=== PATIENT | male | born 1960 | race Caucasian/White ===

== ENCOUNTER 2020-02-27 08:49 | Observation (INO) ==
--- NOTE | 2020-02-06 17:07 | PAT Medication Instructions ---
Medication Instructions Date of Service February 06, 2020 Home Medications C,E,zinc,copper [id number] [Ocuvite Adult 50 Plus] 1 cap PO QAM acetaminophen [Tylenol Extra Strength] 1,000 mg PO Q6H PRN aspirin [Aspir-81] 81 mg PO QAM atorvastatin 20 mg PO QAM cholecalciferol (vitamin D3) [Vitamin D3] 25 mcg PO QAM losartan 50 mg PO QAM metformin 1,000 mg PO BID multivitamin 1 tab PO QAM omega 2-nni-hld-fish oil [Fish Oil] 1 cap PO QAM omeprazole 20 mg PO QAM semaglutide [Ozempic] 0.5 mg SUBCUT WK sildenafil [Viagra] 50 mg PO DAILY PRN sulindac 150 mg PO BID Continue as directed semaglutide [Ozempic] 0.5 mg SUBCUT WK (just do not take AM of surgery) ASK your surgeon for instructions sulindac 150 mg PO BID STOP taking 2 weeks before surgery omega 6-jhx-ajf-fish oil [Fish Oil] 1 cap PO QAM C,E,zinc,copper [id number] [Ocuvite Adult 50 Plus] 1 cap PO QAM DO NOT take the morning of surgery sildenafil [Viagra] 50 mg PO DAILY PRN multivitamin 1 tab PO QAM metformin 1,000 mg PO BID cholecalciferol (vitamin D3) [Vitamin D3] 25 mcg PO QAM losartan 50 mg PO QAM Take morning of surgery With a small sip of water, OTHERWISE NOTHING TO EAT OR DRINK AFTER MIDNIGHT: omeprazole 20 mg PO QAM aspirin [Aspir-81] 81 mg PO QAM atorvastatin 20 mg PO QAM acetaminophen [Tylenol Extra Strength] 1,000 mg PO Q6H PRN (okay to take up to 4 hours prior to surgery if needed) Take evening before surgery metformin 1,000 mg PO BID acetaminophen [Tylenol Extra Strength] 1,000 mg PO Q6H PRN (if needed) Other Notes If you have any questions please call us at [phone] or [phone] or [phone] or [phone]
--- NOTE | 2020-02-07 11:50 | Anesthesiology Consultation ---
Date of Service February 07, 2020 Assessment & Plan (1) Encounter for pre-operative examination: Chart Review Chart Review: Acceptable Risk for Surgery (pending Covid testing ) and Patient seen in Pre Admission Testing - Check BSG AM DOS Per PAT apt 02/07/20, pt resides in [facility]. Traveled to [facility] x 1. Denies any known Covid positive contacts. Denies any current Covid related symptoms. Has preop Covid testing scheduled three days prior to procedure. Was educated that he should social distance and strict quarantine after Covid test done. History Surgery Operation Date: 02/27/20 08:35 Proposed Procedures p Right Total Knee Arthroplasty - Marc Barton MD Height/Weight Height: 5 ft 6 in Weight: 106.4 kg Allergies Allergy/AdvReac Type Severity Reaction Status Date / Time latex Allergy Mild RASH Verified 02/05/20 14:22 Medications Home Medications Medication Instructions Recorded Confirmed Last Taken C,E,zinc,copper [id number] 1 cap PO QAM 02/05/20 02/05/20 Unknown [Ocuvite Adult 50 Plus] acetaminophen [Tylenol Extra 1,000 mg PO Q6H PRN 02/05/20 02/05/20 Unknown Strength] aspirin [Aspir-81] 81 mg PO QAM 02/05/20 02/05/20 Unknown atorvastatin 20 mg PO QAM 02/05/20 02/05/20 Unknown cholecalciferol (vitamin D3) 25 mcg PO QAM 02/05/20 02/05/20 Unknown [Vitamin D3] losartan 50 mg PO QAM 02/05/20 02/05/20 Unknown metformin 1,000 mg PO BID 02/05/20 02/05/20 Unknown multivitamin 1 tab PO QAM 02/05/20 02/05/20 Unknown omega 9-lqq-gwl-fish oil [Fish Oil] 1 cap PO QAM 02/05/20 02/05/20 Unknown omeprazole 20 mg PO QAM 02/05/20 02/05/20 Unknown semaglutide [Ozempic] 0.5 mg SUBCUT WK 02/05/20 02/05/20 Unknown sildenafil [Viagra] 50 mg PO DAILY PRN 02/05/20 02/05/20 Unknown sulindac 150 mg PO BID 02/05/20 02/05/20 Unknown Past Medical History Medical History (Updated 02/07/20 @ 12:10 by Jesica Pedraza PA-C) Diabetes mellitus, type 2 Well controlled and stable Dyslipidemia Enlarged prostate Hypertension Osteoarthritis Skin cancer BASAL CELL NOSE Exercise / Class Metabolic Activity II 4-5 Yardwork/Stairs/Walk up hill (one flight of stairs- no SOB or chest pain ) Past Family History Family History Mother Family history of diabetes mellitus Past Surgical History Surgical History H/O cystoscopy WITH STENT History of arthroscopy RIGHT History of colonoscopy History of esophagogastroduodenoscopy (EGD) History of repair of hiatal hernia History of repair of rotator cuff R/L Past Anesthesia History No Hx of Anesthesia Complications and No Family Hx of Anesthesia Complications History of PONV No Hx of PONV and No Hx of Motion Sickness Social History Smoking Status: Former smoker Do You Dip or Chew Tobacco: No Smoking End Date: QUIT 35 YRS AGO Hx Alcohol Use: Yes Alcohol type: beer and hard liquor alcohol intake frequency: a few times a month Hx Substance Use: No Review of Systems Patient denies chest pain, shortness of breath, dyspnea on exertion, reflux, cough, wheezing, palpitations. No hx of seizures, stroke, IL, apnea/snoring. No hx of blood clots or blood transfusions Physical Exam Vital Signs VITALS BP 113/65 P 64 TEMP 98.2 SP02 96% RESP 16 Constitutional no acute distress ENMT Mouth: no chipped teeth Thyromental Distance: > or= 3.5 Finger Breadths (3.5) Mallampati Class: II Denies missing teeth Top front teeth capped Neck + short neck (mild), + thick neck (mild) and + limited neck extension (mild) Respiratory normal respiratory effort; no respiratory distress Auscultation: lungs clear to auscultation bilaterally; no wheezes Cardiovascular Rate/Rhythm: regular rate and regular rhythm Heart Sounds: no murmur Vessels: no carotid bruit Musculoskeletal Spine: no pain with cervical ROM Neurologic moves all extremities Psychiatric Orientation: alert Testing Laboratory Results 02/07/20 12:02 02/07/20 12:02 PT 11.4 Seconds (9.0-12.0) 02/07/20 12:02 INR 1.1 (0.9-1.1) 02/07/20 12:02 APTT 27.5 Seconds (21.0-31.0) 02/07/20 12:02 Hemoglobin A1c 6.6 % (4.5-5.6) H 02/07/20 12:02 Urine Color Yellow 02/07/20 Unknown Urine Appearance Clear (Clear) 02/07/20 Unknown Urine pH 5.0 (4.5-7.5) 02/07/20 Unknown Ur Specific [place] 1.023 (1.000-1.030) 02/07/20 Unknown Urine Protein Negative (Negative) 02/07/20 Unknown Urine Glucose (UA) Negative (Negative) 02/07/20 Unknown Urine Ketones Negative (Negative) 02/07/20 Unknown Urine Nitrite Negative (Negative) 02/07/20 Unknown Ur Leukocyte Esterase Negative (Negative) 02/07/20 Unknown Blood Type B Positive 02/07/20 12:02 Antibody Screen NEGATIVE 02/07/20 12:02 Electrocardiogram Date: 02/07/20 Findings: + SB @ (58) Chest X-Ray Date: 02/07/20 Findings: + NAD Slight chronic blunting right lateral costophrenic angle
--- NOTE | 2020-02-07 12:25 | XRay Report ---
XR chest Pre-admission PA/Lat CLINICAL HISTORY: pat preoperative COMPARISON STUDY: 04/03/2015 FINDINGS: The bones soft tissues and hemidiaphragms are normal. The cardiomediastinal silhouette is n ormal. The lungs are clear. The pulmonary vasculature is normal. Slight chronic blunting right latera l costophrenic angle IMPRESSION: Negative chest. ACT 112: Negative or not required by law. The above report was generated using voice recognition software. It may contain grammatical, syntax or spelling errors. Electronically signed by: Tam David M.D. 02/07/2020 12:23 PM
[2020-02-07 12:29] LABS: Basophils # (auto) 0.05 K/uL (0-0.2); Basophils % (auto) 0.6 %; Eosinophils # (auto) 0.36 K/uL (0-0.5); Eosinophils % (auto) 4.3 %; Hematocrit (blood only) 44.1 % (42-52); Hemoglobin 14.8 g/dL (14.0-18.0); Immature Granulocytes # (auto) 0.03 K/uL (0.00-0.02); Immature Granulocytes % (auto) 0.4 %; Lymphocytes # (auto) 2.53 K/uL (1.2-3.4); Lymphocytes % (auto) 30.3 %; Mean Corpuscular Hemoglobin 28.5 pg (25-34); Mean Corpuscular Hgb Conc 33.6 g/dL (32-36); Monocytes # (auto) 0.59 K/uL (0.11-0.59); Monocytes % (auto) 7.1 %; Neutrophils # (auto) 4.79 K/uL (1.4-6.5); Neutrophils % (auto) 57.3 %; Platelet Count 194 K/uL (130-400); RDW Coefficient of Variation 13.6 % (11.5-14.5); RDW Standard Deviation 42.3 fL (36.4-46.3); Red Blood Count 5.19 M/uL (4.7-6.1); White Blood Count 8.35 K/uL (4.8-10.8)
[2020-02-07 12:34] LABS: Appearance Urine Clear (Clear); Bilirubin Urine Negative (Negative); Blood Urine Negative (Negative); Color Urine Yellow; Glucose Urine UA Negative (Negative); Ketones Urine Negative (Negative); Leukocyte Esterase Urine Negative (Negative); Nitrite Urine Negative (Negative); Protein Urine Negative (Negative); Specific Gravity Urine 1.023 (1.000-1.030); Urobilinogen Urine Negative (Negative)
[2020-02-07 12:41] LABS: INR 1.1 (0.9-1.1); Partial Thromboplastin Time 27.5 Seconds (21.0-31.0); Prothrombin Time 11.4 Seconds (9.0-12.0)
[2020-02-07 12:44] LABS: Albumin Level 3.8 gm/dl (3.4-5.0); BUN Creatinine Ratio 18.6 (10-20); Calcium 9.4 mg/dl (8.5-10.1); Creatinine Clr Calc Pharmacy 82.1 ml/min; Est GFR (African American) 85.4; Est GFR (Non-African American) 73.7; Potassium 4.4 mmol/L (3.5-5.1)
[2020-02-07 12:56] LABS: Estimated Average Glucose 143 mg/dl; Hemoglobin A1C 6.6 % (4.5-5.6)
--- NOTE | 2020-02-08 07:04 | Electrocardiogram Report ---
Test Reason : Blood Pressure : / mmHG Vent. Rate : 058 BPM Atrial Rate : 058 BPM P-R Int : 138 ms QRS Dur : 082 ms QT Int : 390 ms P-R-T Axes : 037 059 007 degrees QTc Int : 382 ms Sinus bradycardia Otherwise normal ECG When compared with ECG of 23-FEB-2018 17:58, T wave inversion now evident in Inferior leads Confirmed by Yogi Knight ([id number]) on 02/08/2020 7:03:47 AM Referred By: Marc Barton Confirmed By:Yogi Knight
--- NOTE | 2020-02-21 13:42 | History & Physical Report ---
Date of Service February 21, 2020 Assessment & Plan (1) Primary osteoarthritis of right knee: Treatment options discussed. Patient has failed conservative measures as above. Risks, benefits and alternatives to surgery including but not limited to infection, DVT, pain, stiffness, need for revision surgery, damage to blood vessels, damage to nerves, PE, , were discussed with the patient and they wish to proceed. Plan will be for right total knee arthroplasty at [facility] on 02/27/20. Will plan on ASA 81mg BID x 1mo post op for DVT prophylaxis as well as HHPT. All questions answered. COVID testing will be completed preoperatively. He will follow up post operatively. History of Present Illness Chief Complaint: Right knee pain Primary Care Provider: Tam Elkins MD Patient is a 60 year old male with PMHx significant for HTN, GERD, DM2, kidney stones, and BPH who presents with ongoing right knee pain. Pain is interfering with his ability to carry out his daily activities. He has failed conservative measures including anti-inflammatories, cortisone injections, and viscoelastic injections. He would like to proceed with right knee replacement. Patient denies headaches, sweats, fevers, chills, double vision, blurred vision, cough, sore throat, dysphagia, chest pain, sob, wheezing, n/v/d/c, numbness, tingling, fatigue, urinary symptoms, mood disorders. ROS positive for right knee pain and stiffness. Allergies Allergy/AdvReac Type Severity Reaction Status Date / Time latex Allergy Mild RASH Verified 02/05/20 14:22 Home Medications Home Medications Medication Instructions Recorded Confirmed Type C,E,zinc,copper [id number] 1 cap PO QAM 02/05/20 02/05/20 History [Ocuvite Adult 50 Plus] acetaminophen [Tylenol Extra 1,000 mg PO Q6H PRN 02/05/20 02/05/20 History Strength] aspirin [Aspir-81] 81 mg PO QAM 02/05/20 02/05/20 History atorvastatin 20 mg PO QAM 02/05/20 02/05/20 History cholecalciferol (vitamin D3) 25 mcg PO QAM 02/05/20 02/05/20 History [Vitamin D3] losartan 50 mg PO QAM 02/05/20 02/05/20 History metformin 1,000 mg PO BID 02/05/20 02/05/20 History multivitamin 1 tab PO QAM 02/05/20 02/05/20 History omega 9-sch-ryl-fish oil [Fish Oil] 1 cap PO QAM 02/05/20 02/05/20 History omeprazole 20 mg PO QAM 02/05/20 02/05/20 History semaglutide [Ozempic] 0.5 mg SUBCUT WK 02/05/20 02/05/20 History sildenafil [Viagra] 50 mg PO DAILY PRN 02/05/20 02/05/20 History sulindac 150 mg PO BID 02/05/20 02/05/20 History Past Med/Surg History Medical History Diabetes mellitus, type 2 Well controlled and stable Dyslipidemia Enlarged prostate Hypertension Osteoarthritis Skin cancer BASAL CELL NOSE Surgical History H/O cystoscopy WITH STENT History of arthroscopy RIGHT History of colonoscopy History of esophagogastroduodenoscopy (EGD) History of repair of hiatal hernia History of repair of rotator cuff R/L Family History Mother Family history of diabetes mellitus Social History Preferred Language: Mongolian Communication Ability: Effective Visual Impairment: No Limitations Hearing Ability: Normal 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 Beliefs That Will Affect Care: None Current Living Situation: Spouse Other Information That Helps Us Care for You: No Feels Safe at Home: Yes Safety Concerns: Feels Safe At This Time Smoking Status: Former smoker Do You Dip or Chew Tobacco: No ; Smoking End Date: QUIT 35 YRS AGO ; Second Hand Exposure: Yes ( A CHILD) ; Hx Alcohol Use: Yes Alcohol type: beer and hard liquor Hx Substance Use: No Review of Systems All systems reviewed & are unremarkable except as noted in HPI & below Physical Exam Constitutional: well developed and well nourished; no acute distress Eyes: PERRL, conjunctivae normal, anicteric sclerae ENMT: external ear and nose normal, oropharynx normal Neck: trachea midline, no thyromegaly Respiratory: normal respiratory effort, lungs clear to auscultation Cardiovascular: RRR, no murmur, no edema Musculoskeletal: Right knee: Mild effusion, tenderness medial joint line. ROM 0-130, stable to valgus and varus. Positive Robert's. Skin: no rashes, warm and dry Neurologic: patellar DTR's 2+ bilat, sensation intact Psychiatric: A+Ox3, euthymic affect Results & Data Laboratory Results Lab Results 02/07/20 02/07/20 02/07/20 Range/Units 12:02 12:02 12:02 WBC 8.35 (4.8-10.8) K/uL RBC 5.19 (4.7-6.1) M/uL Hgb 14.8 (14.0-18.0) g/dL Hct 44.1 (42-52) % MCV 85.0 (80-100) fL MCH 28.5 (25-34) pg MCHC 33.6 (32-36) g/dL RDW Std Deviation 42.3 (36.4-46.3) fL RDW Coeff of Andrea 13.6 (11.5-14.5) % Plt Count 194 (130-400) K/uL MPV 9.0 (7.4-10.4) fL Immature Gran % (Auto) 0.4 % Neut % (Auto) 57.3 % Lymph % (Auto) 30.3 % Centre % (Auto) 7.1 % Eos % (Auto) 4.3 % Baso % (Auto) 0.6 % Immature Gran # (Auto) 0.03 H (0.00-0.02) K/uL Neut # (Auto) 4.79 (1.4-6.5) K/uL Lymph # (Auto) 2.53 (1.2-3.4) K/uL Centre # (Auto) 0.59 (0.11-0.59) K/uL Eos # (Auto) 0.36 (0-0.5) K/uL Baso # (Auto) 0.05 (0-0.2) K/uL PT 11.4 (9.0-12.0) Seconds INR 1.1 (0.9-1.1) APTT 27.5 (21.0-31.0) Seconds PTT Ratio 1.0 Sodium (136-145) mmol/L Potassium (3.5-5.1) mmol/L Chloride (98-107) mmol/L Carbon Dioxide (21-32) mmol/L Anion Gap (3-11) BUN (7-18) mg/dl Creatinine (0.6-1.4) mg/dl Est Cr Clr Drug Dosing ml/min Est GFR ( Amer) Est GFR (Non-Af Amer) BUN/Creatinine Ratio (10-20) Glucose (70-99) mg/dl Estimat Average Glucose mg/dl Hemoglobin A1c (4.5-5.6) % Calcium (8.5-10.1) mg/dl Albumin (3.4-5.0) gm/dl Urine Color Urine Appearance (Clear) Urine pH (4.5-7.5) Ur Specific [place] (1.000-1.030) Urine Protein (Negative) Urine Glucose (UA) (Negative) Urine Ketones (Negative) Urine Blood (Negative) Urine Nitrite (Negative) Urine Bilirubin (Negative) Urine Urobilinogen (Negative) Ur Leukocyte Esterase (Negative) Blood Type B Positive Antibody Screen NEGATIVE 02/07/20 02/07/20 02/07/20 Range/Units 12:02 12:02 Unknown WBC (4.8-10.8) K/uL RBC (4.7-6.1) M/uL Hgb (14.0-18.0) g/dL Hct (42-52) % MCV (80-100) fL MCH (25-34) pg MCHC (32-36) g/dL RDW Std Deviation (36.4-46.3) fL RDW Coeff of Andrea (11.5-14.5) % Plt Count (130-400) K/uL MPV (7.4-10.4) fL Immature Gran % (Auto) % Neut % (Auto) % Lymph % (Auto) % Centre % (Auto) % Eos % (Auto) % Baso % (Auto) % Immature Gran # (Auto) (0.00-0.02) K/uL Neut # (Auto) (1.4-6.5) K/uL Lymph # (Auto) (1.2-3.4) K/uL Centre # (Auto) (0.11-0.59) K/uL Eos # (Auto) (0-0.5) K/uL Baso # (Auto) (0-0.2) K/uL PT (9.0-12.0) Seconds INR (0.9-1.1) APTT (21.0-31.0) Seconds PTT Ratio Sodium 139 (136-145) mmol/L Potassium 4.4 (3.5-5.1) mmol/L Chloride 106 (98-107) mmol/L Carbon Dioxide 28 (21-32) mmol/L Anion Gap 4.0 (3-11) BUN 20 H (7-18) mg/dl Creatinine 1.08 (0.6-1.4) mg/dl Est Cr Clr Drug Dosing 82.1 ml/min Est GFR ( Amer) 85.4 Est GFR (Non-Af Amer) 73.7 BUN/Creatinine Ratio 18.6 (10-20) Glucose 106 H (70-99) mg/dl Estimat Average Glucose 143 mg/dl Hemoglobin A1c 6.6 H (4.5-5.6) % Calcium 9.4 (8.5-10.1) mg/dl Albumin 3.8 (3.4-5.0) gm/dl Urine Color Yellow Urine Appearance Clear (Clear) Urine pH 5.0 (4.5-7.5) Ur Specific [place] 1.023 (1.000-1.030) Urine Protein Negative (Negative) Urine Glucose (UA) Negative (Negative) Urine Ketones Negative (Negative) Urine Blood Negative (Negative) Urine Nitrite Negative (Negative) Urine Bilirubin Negative (Negative) Urine Urobilinogen Negative (Negative) Ur Leukocyte Esterase Negative (Negative) Blood Type Antibody Screen Diagnostic Findings Right knee radiographs: Significant arthritic change in all 3 compartments worst in the medial compartment with osteophyte formation off the medial femoral condyle and medial tibial plateau
[~2020-02-27 08:49] MED LIST: ACETAMINOPHEN 500 MG TAB PO SCH; BUPIVACAINE 0.5 % 5 MG/1 ML PF 10ML VIAL ONE; CEFAZOLIN 2000MG 2,000 MG/15 ML SYR IV SCH; CeleBREX 200 MG CAP PO SCH; FAMOTIDINE 20 MG TAB PO SCH; GABAPENTIN 600 MG DOSE PO SCH; LR 500ML BOLUS, THEN 15ML/HR IV SCH; METOCLOPRAMIDE HCL 10 MG TABLET PO SCH; OXYCODONE HCL 10 MG TABCR (OXYCONTIN) PO SCH; ROPIVACAINE 0.5% HCL/PF 150 MG, BUPIVACAINE 0.5% MPF 30 ML, EPINEPHrine 30MG/30ML (OR U... INSTIL SCH; TRANEXAMIC ACID 1,000 MG **IV Intra-op IV SCH; TRANEXAMIC ACID 1,000 MG **IV Pre-op IV SCH
[2020-02-27] MEDS ORDERED: ORTHO JOINT ANESTHETIC ONE (09:18)
[2020-02-27] MEDS ORDERED: BACITRACIN INJ 50,000 UNIT VIAL ONE (09:18)
[2020-02-27] MEDS ORDERED: fentaNYL citrate 100 MCG/2 ML VIAL IV PRN (09:23)
[2020-02-27] MEDS ORDERED: ePHEDrine sulfate 50 MG/ML AMP IV PRN (09:23)
[2020-02-27] MEDS ORDERED: ONDANSETRON INJ 2 MG/ML 2 ML VIAL IV PRN ×2 (09:23→14:48)
[2020-02-27] MEDS ORDERED: ATROPINE SULFATE 0.1 MG/ML 10ML SYR IV PRN (09:23)
--- NOTE | 2020-02-27 09:28 | History & Physical Bridge Note ---
Date of Service February 27, 2020 History & Physical Bridge Note I have examined the patient, reviewed the History & Physical and in the interval since the performance of the History & Physical I have noted the following changes of clinical significance: no changes noted
[2020-02-27] MEDS ORDERED: MIDAZOLAM HCL 1 MG/ML 2ML VIAL ONE (09:47)
[2020-02-27] MEDS ORDERED: fentaNYL citrate 100 MCG/2 ML VIAL ONE (09:48)
[2020-02-27] MEDS ORDERED: PROPOFOL IV EMULSION 10 MG/ML 20 ML VIAL IV ONE (12:24)
[2020-02-27] MEDS ORDERED: LIDOCAINE HCL 2% 2 ML VIAL/AMP(20MG/ML) INFIL ONE (12:24)
--- NOTE | 2020-02-27 13:37 | XRay Report ---
XR knee RT 1 or 2V routine CLINICAL HISTORY: Surgical Post Op postoperative evaluation COMPARISON: None. DISCUSSION: Anatomic alignment post total right knee arthroplasty. Good contact between prosthetic an d underlying bone. Expected soft tissue postoperative change IMPRESSION: Anatomic alignment post total right knee arthroplasty. ACT 112: Negative or not required by law. The above report was generated using voice recognition software. It may contain grammatical, syntax or spelling errors. Electronically signed by: Tam David M.D. 02/27/2020 1:35 PM
--- NOTE | 2020-02-27 13:44 | Operative Report ---
Post Operative Report Pre & Post Diagnosis Operation Date: 02/27/20 10:55 Pre-Op Diagnosis: RIGHT KNEE OSTEOARTHRITIS Post-Op Diagnosis: RIGHT KNEE OSTEOARTHRITIS I identified the patient and participated in the time-out.: Yes Procedure Operation Date: 02/27/20 10:55 Actual Procedures p Right Total Knee Arthroplasty(Right) - Marc Barton MD Surgeon Marc Barton MD Oil Separator Ruddy Goldsmith PA-C Estimated Blood Loss 20 Findings Consistent with Post-Op Diagnosis Specimens Bone and tissue Drains None Anesthesia Type MAC Spinal Regional Disposition Accompanied Patient To Recovery: No Disposition: Recovery Room Indications The patient is a 60-year-old male with longstanding arthritic change of the right knee. He is failed conservative measures including injection, anti- inflammatories, rehab. He wishes to proceed with a right total knee arthroplasty. Description of Procedure Risks benefits and alternatives of surgery including but not limited to infection, DVT, pain, stiffness, need for surgery, damage to blood vessels, damage to nerves or risks of anesthesia were discussed with the patient and they wished to proceed. The patient was identified and the laterality was confirmed and marked. They received a preoperative antibiotic as well as a spinal anesthetic and an abductor canal block. A well-padded tourniquet was applied and then the limb was prepped and draped in standard manner with ChloraPrep. The limb was exsanguinated and the tourniquet was inflated. I made a standard anterior incision. I sharply incised the skin then utilized Bovie electrocautery to achieve hemostasis. I made a medial parapatellar arthrotomy and mobilized the patella laterally. I then excised the anterior horns of the medial and lateral meniscus as well as the infrapatellar fat pad. I elevated a portion of the MCL off of the tibia. I then pinned into place a patient-matched distal femoral cutting guide and made my distal femoral resection. I then pinned into place the 5 in 1 femoral cutting guide. I made my anterior, posterior and chamfer cuts. I then excised the cruciates and the remaining portions of the menisci. I then pinned into place a patient- matched tibial cutting guide and made my tibial resection. I then pinned into place the tibial plate a utilizing alignment paul to confirm rotation. I then cut for the post. Utilizing a lamina certified driver examiner and I then removed posterior osteophytes off the femur. He was significantly tight in both flexion as well as in extension. I took an additional 2 mm off of the tibia. I then placed a trial femur into position and cut for the trochlear component. He was tight in flexion only. He was relatively neutral in extension. I downsized the femur from a size 6 to a size 5. I pinned it in place a size 5 femur and recut. Still had a little bit of difficulty in getting him balanced in flexion and extension as well as medial lateral stability. I trialed a constrained liner and this helped a significantly. I then prepared the patella with a freehand cut utilizing sagittal saw. I sized and drilled for the patella. There was good tracking to the patella no lateral release was needed. All the trial components were removed. The deep tissues were anesthetized with an ortho mix solution. Then with Simplex HV with gentamicin cement, I cemented my definitive components. Definitive components, Barnhart and Nephew Christina 2: Femur 5 Tibia 4 Poly 10 constrained Patella 32 oval A betadine soak was performed. The arthrotomy was closed with interrupted #1 Vicryl suture subcutaneous tissue was closed with interrupted 2-0 Vicryl suture. The skin was closed with with surendra. An Acticoat and Chrystal dressing were placed. Sterile dressings were applied. All needle and sponge counts were correct at the end of the procedure patient was transferred to the PACU in stable condition without apparent complication. The PA-C was necessary for assistance with procedure for assistance in positioning, prepping, draping, retraction and closure. I attest to the content of the Intraoperative Record and any orders documented therein. Any exceptions are noted below.
--- NOTE | 2020-02-27 14:41 | Anesthesiology Progress Note ---
Date of Service February 27, 2020 Anesthesia Post Procedure Vital Signs Vital Signs: Temp Pulse Pulse Resp BP BP Pulse Ox 02/27/20 14:00 68 10 L 112/72 96 02/27/20 13:50 97.3 F L 66 13 120/70 97 02/27/20 13:40 72 19 135/78 96 02/27/20 13:30 79 11 L 139/82 95 02/27/20 13:20 78 12 131/74 97 02/27/20 13:10 79 19 118/75 95 02/27/20 13:03 97.0 F L 78 15 128/68 97 02/27/20 09:43 98.8 F 79 20 144/80 H 96 Pain Intensity Right Knee: Pain Intensity: 0 Transfer of Care Handoff Completed per policy Notes Mental Status: alert / awake / arousable and participated in evaluation Patient Amnestic to Procedure: Yes Nausea / Vomiting: adequately controlled Pain: adequately controlled Airway Patency, RR, SpO2: stable & adequate BP & HR: stable & adequate Hydration State: stable & adequate Neuraxial Anesthesia: was administered and sensory block is resolving Anesthetic Complications: no major complications apparent and Pt Satisfied with anesthetic care
[2020-02-27] MEDS ORDERED: METOCLOPRAMIDE HCL INJ 5 MG/ML 2 ML VIAL IV PRN (14:48)
[2020-02-27] MEDS ORDERED: NON-FORMULARY MEDICATION (Sildenafil [Viagra] 50 MG) PO PRN (14:48)
[2020-02-27] MEDS ORDERED: NALOXONE HCL 0.4 MG/1 ML VIAL/CARP IV PRN (14:48)
[2020-02-27] MEDS ORDERED: MAGNESIUM HYDROXIDE SUSP 30 ML UDC PO PRN (14:48)
[2020-02-27] MEDS ORDERED: bisacodyL 10 MG SUPP PR PRN (14:48)
[2020-02-27] MEDS ORDERED: OXYCODONE HCL IR 5 MG TAB (IMMEDIATE RELEASE) PO PRN (14:48)
[2020-02-27] MEDS ORDERED: TAMSULOSIN HCL 0.4 MG CAP PO PRN (14:48)
[2020-02-27] MEDS ORDERED: HYDROmorphone INJ 0.5 MG/0.5 ML SYR IV PRN (14:48)
[2020-02-27] MEDS ORDERED: PHARMACY GLYCEMIC MGMT CONSULT PRN (15:06)
--- NOTE | 2020-02-27 15:43 | Pharmacy Report ---
Glycemic Control Consultation - Date of Service February 27, 2020 - Scope Scope: Glycemic Pharmacist consulted for glycemic control and to write orders per [facility] inpatient glycemic control protocol. - Objective Weight: 106.282 kg Accuchecks BSG (last 24hrs): 02/27/20 02/27/20 10:01 13:06 POC Glucose 116 H 111 H HbA1c: Hemoglobin A1c 6.6 % (4.5-5.6) H 02/07/20 12:02 - Recent Pertinent Medications Outpatient Anti-diabetic Regimen: * Metformin 1000 mg PO BID * Ozempic 0.5 mg weekly (last dose 02/09/20) * A1c = 6.6 % on 02/07/20 Risk Factors for Insulin Resistance: * Steroids: none * Infection: Ancef x2 doses post op * Pressors: none * IVF: NS @ 100 ml/hr * Recent Surgery: R TKA today * Diet: T2DM - Assessment & Plan Assessment & Plan: ASSESSMENT: * 60 y/o M admitted for R TKA with T2DM managed at home with oral Metformin and Ozempic SQ weekly. * Oral agents are not recommended for inpatient use d/t drug interactions, changing PO intake, and difficulty titrating for acute hyper/hypoglycemia. ADA recommends re-initiating outpatient oral agents 1-2 days prior to discharge if/when appropriate if they were held on admission. * Will hold Metformin and Ozempic for admission and utilize SQ insulin regimen which is the recommended regimen for inpatient glycemic control. * Will initiate weight based insulin dosing for insulin renata patient and titrate based on BSG trends. * Patient with good BSGs this morning and afternoon, therefore a basal insulin was not initiated for him. * Used a weight based dosing with a stress between 1 and 2 for Novolog bolus. PLAN FOR INPATIENT GLYCEMIC CONTROL: * Holding outpatient oral and SQ diabetes medications * Basal insulin: none * Bolus insulin * NovoLog per scale ACHS or Q6hrs while NPO * Goal Range: Low 110 mg/dL - High 140 mg/dL * Correction Factor: 25 mg/dL/unit * Nutritional / Prandial insulin per carb ratio of 1 unit per 9 grams CHO consumed * Please note that the plan above was derived based on current level of insulin resistance and hospital stress. These recommendations are appropriate for inpatient admission only. Plan of care upon discharge will need to be reassessed to avoid potential outpatient hypo/hyperglycemia. Thank you.
[2020-02-27] MEDS ORDERED: GLUCOSE 10 TABS/TUBE PO PRN (15:45)
[2020-02-27] MEDS ORDERED: DEXTROSE 50% 50 ML SYRINGE IV PRN (15:45)
[2020-02-27] MEDS ORDERED: CARBOHYDRATES FOR HYPOGLYCEMIA PO PRN (15:45)
[2020-02-27] MEDS ORDERED: GLUCOSE 40% GEL 15 GM TUBE PO PRN (15:45)
[2020-02-27] MEDS ORDERED: GLUCAGON FOR INJ 1 MG VIAL IM PRN (15:45)
[2020-02-27] MEDS: SODIUM CHLORIDE 0.9% 1000ML 1,000 ML IV SCH (16:52)
[2020-02-27] MEDS: ACETAMINOPHEN 500 MG TAB PO SCH ×2 (16:53→23:31)
[2020-02-27] MEDS: INSULIN ASPART 100 UNITS/ML 3 ML PEN SC SCH ×2 (18:27→22:02)
[2020-02-27] MEDS: CEFAZOLIN 2000MG 2,000 MG/15 ML SYR IV SCH (18:28)
[2020-02-27] MEDS: ASPIRIN 81 MG ECTAB PO SCH (19:30)
[2020-02-27] MEDS: DOCUSATE SODIUM 100 MG CAP PO SCH (19:30)
[2020-02-27] MEDS: CeleBREX 200 MG CAP PO SCH (19:30)
[2020-02-27] MEDS ORDERED: SENNA 8.6 MG TAB PO SCH (21:00)
[2020-02-28] MEDS: CEFAZOLIN 2000MG 2,000 MG/15 ML SYR IV SCH (01:38)
[2020-02-28] MEDS: SODIUM CHLORIDE 0.9% 1000ML 1,000 ML IV SCH (01:38)
[2020-02-28] MEDS: ACETAMINOPHEN 500 MG TAB PO SCH ×2 (05:01→12:53)
[2020-02-28 05:49] LABS: Hematocrit (blood only) 40.5 % (42-52); Hemoglobin 13.6 g/dL (14.0-18.0); Mean Corpuscular Hemoglobin 28.4 pg (25-34); Mean Corpuscular Hgb Conc 33.6 g/dL (32-36); Mean Corpuscular Volume 84.6 fL (80-100); Mean Platelet Volume 9.7 fL (7.4-10.4); Platelet Count 169 K/uL (130-400); RDW Coefficient of Variation 13.3 % (11.5-14.5); RDW Standard Deviation 40.4 fL (36.4-46.3); Red Blood Count 4.79 M/uL (4.7-6.1); White Blood Count 12.61 K/uL (4.8-10.8)
[2020-02-28 06:24] LABS: BUN Creatinine Ratio 17.7 (10-20); Calcium 8.3 mg/dl (8.5-10.1); Creatinine Clr Calc Pharmacy 78.1 ml/min; Est GFR (African American) 81.2; Potassium 4.3 mmol/L (3.5-5.1)
--- NOTE | 2020-02-28 07:32 | Orthopedic Progress Note ---
Date of Service February 28, 2020 Assessment & Plan (1) Primary osteoarthritis of right knee: POD#1 Right TKA -Pain management -PT/OT -DVT prophylaxis-SCDs, TEDs, ASA 81mg BID x 30 days -AM labs hemoglobin at 13.6 from 14.8 preop -D/C planning-home with HHPT likely later today as long PT goes well Admission and Anticipated Discharge Date Admission Date: February 27, 2020 Subjective Patient is seen sitting in bedside chair. Pain well controlled. Hoping to go home today. No complaints. Denies chest pain, sob, dizziness, light headedness, n/v/d. Review of Systems Review of Systems: All systems reviewed & are unremarkable except as noted in HPI & below Physical Exam Physical Exam: Right knee dressing is c/d/i, no calf tenderness. BRYAN suctioning. Distally n/v status and sensation intact. Toes are mobile with good dorsiflexion Constitutional: well developed and well nourished; no acute distress Results & Data ([facility]) Vital Signs (Past 12 Hours) Vital Signs Temp Pulse Resp BP Pulse Ox 02/28/20 07:16 36.9 C 61 16 127/76 97 02/28/20 03:32 36.5 C 53 L 20 144/81 H 97 02/27/20 23:37 36.6 C 56 L 16 132/79 97 02/27/20 20:11 36.6 C 62 16 115/68 96 Laboratory Results H & H 02/07/20 02/28/20 Range/Units 12:02 04:59 Hgb 14.8 13.6 L (14.0-18.0) g/dL Hct 44.1 40.5 L (42-52) % Coagulation 02/07/20 Range/Units 12:02 INR 1.1 (0.9-1.1)
[2020-02-28] MEDS: INSULIN ASPART 100 UNITS/ML 3 ML PEN SC SCH ×2 (08:56→12:52)
[2020-02-28] MEDS: DOCUSATE SODIUM 100 MG CAP PO SCH (08:58)
[2020-02-28] MEDS: CeleBREX 200 MG CAP PO SCH (08:58)
[2020-02-28] MEDS: ASPIRIN 81 MG ECTAB PO SCH (08:59)
[2020-02-28] MEDS ORDERED: LOSARTAN POTASSIUM 50 MG TAB PO SCH (09:00)
[2020-02-28] MEDS ORDERED: ATORVASTATIN 20 MG TAB PO SCH (09:00)
[2020-02-28] MEDS ORDERED: CHOLECALCIFEROL 1,000 UNITS 25 MCG TAB PO SCH (09:00)
[2020-02-28] MEDS ORDERED: MULTIVITAMIN TAB PO SCH ×2 (09:00)
[2020-02-28] MEDS ORDERED: PANTOprazole 40 MG TAB PO SCH (09:00)
--- NOTE | 2020-02-28 10:37 | Anesthesiology Progress Note ---
Date of Service February 28, 2020 Anesthesia Post Procedure Vital Signs Vital Signs: Temp Pulse Pulse Resp BP Pulse Ox 02/28/20 07:43 36.9 C 61 16 127/76 97 02/28/20 07:16 36.9 C 61 16 127/76 97 02/28/20 03:32 36.5 C 53 L 20 144/81 H 97 02/27/20 23:37 36.6 C 56 L 16 132/79 97 02/27/20 20:11 36.6 C 62 16 115/68 96 02/27/20 16:15 36.7 C 70 16 114/73 96 02/27/20 14:45 36.5 C 65 18 119/67 95 02/27/20 14:25 36.5 C 72 16 106/69 98 02/27/20 14:00 68 10 L 112/72 96 02/27/20 13:50 36.3 C L 66 13 120/70 97 02/27/20 13:40 72 19 135/78 96 02/27/20 13:30 79 11 L 139/82 95 02/27/20 13:20 78 12 131/74 97 02/27/20 13:10 79 19 118/75 95 02/27/20 13:03 36.1 C L 78 15 128/68 97 Pain Intensity Right Knee: Pain Intensity: 0 Notes Mental Status: alert / awake / arousable Patient Amnestic to Procedure: Yes Nausea / Vomiting: adequately controlled Pain: adequately controlled Airway Patency, RR, SpO2: stable & adequate BP & HR: stable & adequate Hydration State: stable & adequate Neuraxial Anesthesia: was administered and sensory block resolved Anesthetic Complications: no major complications apparent
--- NOTE | 2020-02-28 17:54 | Discharge Summary ---
Date of Service February 28, 2020 Admission HPI Per Admitting Provider Patient is a 60 year old male with PMHx significant for HTN, GERD, DM2, kidney stones, and BPH who presents with ongoing right knee pain. Pain is interfering with his ability to carry out his daily activities. He has failed conservative measures including anti-inflammatories, cortisone injections, and viscoelastic injections. He would like to proceed with right knee replacement. Patient denies headaches, sweats, fevers, chills, double vision, blurred vision, cough, sore throat, dysphagia, chest pain, sob, wheezing, n/v/d/c, numbness, tingling, fatigue, urinary symptoms, mood disorders. ROS positive for right knee pain and stiffness. Admission Exam Per Admitting Provider Constitutional: well developed and well nourished; no acute distress Eyes: PERRL, conjunctivae normal, anicteric sclerae ENMT: external ear and nose normal, oropharynx normal Neck: trachea midline, no thyromegaly Respiratory: normal respiratory effort, lungs clear to auscultation Cardiovascular: RRR, no murmur, no edema Musculoskeletal: Right knee: Mild effusion, tenderness medial joint line. ROM 0-130, stable to valgus and varus. Positive Robert's. Skin: no rashes, warm and dry Neurologic: patellar DTR's 2+ bilat, sensation intact Psychiatric: A+Ox3, euthymic affect Principal Diagnosis Right knee osteoarthritis, DM2 Discharge Exam Constitutional well developed and well nourished; no acute distress Eyes PERRL, conjunctivae normal, anicteric sclerae ENMT external ear and nose normal, oropharynx normal Neck trachea midline, no thyromegaly Respiratory normal respiratory effort, lungs clear to auscultation Cardiovascular RRR, no murmur, no edema Skin no rashes, warm and dry Neurologic patellar DTR's 2+ bilat, sensation intact Psychiatric A+Ox3, euthymic affect Discharge Data Allergies Allergy/AdvReac Type Severity Reaction Status Date / Time latex Allergy Mild RASH Verified 02/05/20 14:22 Consultations 02/27/20 14:48 Consult Case Management - Discharge Planning Routine Procedures Performed Operation Date: 02/27/20 10:55 Actual Procedures p Right Total Knee Arthroplasty(Right) - Marc Barton MD Ordered Studies 02/27/20 05:00 US - OR guided needle placemen Routine Hospital Course (1) Primary osteoarthritis of right knee: Patient presented for same day admission following right total knee arthroplasty on 02/27/20. He tolerated procedure well. The Patient had an uneventful hospital course. Post-operatively, his activity was progressed and well tolerated. They participated in PT with ambulation distance of 400 feet. ROM of operative knee reached 93 degrees. Labs remained stable- lowest hemoglobin recorded: 13.6. Pain controlled on oral medications. Please refer to daily progress notes and PT notes for complete details. After exam on 02/28/20, patient was felt to be stable for discharge home with plans on attending outpatient PT. Patient will f/u in the office in about 2 weeks for further evaluation including x-rays and incision check, sooner if having any issues or concerns. POD#1 Right TKA -Pain management -PT/OT -DVT prophylaxis-SCDs, TEDs, ASA 81mg BID x 30 days -AM labs hemoglobin at 13.6 from 14.8 preop -D/C planning-home with HHPT likely later today as long PT goes well Lab Results 02/07/20 02/07/20 02/07/20 Range/Units 12:02 12:02 12:02 WBC 8.35 (4.8-10.8) K/uL RBC 5.19 (4.7-6.1) M/uL Hgb 14.8 (14.0-18.0) g/dL Hct 44.1 (42-52) % MCV 85.0 (80-100) fL MCH 28.5 (25-34) pg MCHC 33.6 (32-36) g/dL RDW Std Deviation 42.3 (36.4-46.3) fL RDW Coeff of Andrea 13.6 (11.5-14.5) % Plt Count 194 (130-400) K/uL MPV 9.0 (7.4-10.4) fL Immature Gran % (Auto) 0.4 % Neut % (Auto) 57.3 % Lymph % (Auto) 30.3 % [place] % (Auto) 7.1 % Eos % (Auto) 4.3 % Baso % (Auto) 0.6 % Immature Gran # (Auto) 0.03 H (0.00-0.02) K/uL Neut # (Auto) 4.79 (1.4-6.5) K/uL Lymph # (Auto) 2.53 (1.2-3.4) K/uL [place] # (Auto) 0.59 (0.11-0.59) K/uL Eos # (Auto) 0.36 (0-0.5) K/uL Baso # (Auto) 0.05 (0-0.2) K/uL PT 11.4 (9.0-12.0) Seconds INR 1.1 (0.9-1.1) APTT 27.5 (21.0-31.0) Seconds PTT Ratio 1.0 Sodium (136-145) mmol/L Potassium (3.5-5.1) mmol/L Chloride (98-107) mmol/L Carbon Dioxide (21-32) mmol/L Anion Gap (3-11) BUN (7-18) mg/dl Creatinine (0.6-1.4) mg/dl Est Cr Clr Drug Dosing ml/min Est GFR ( Amer) Est GFR (Non-Af Amer) BUN/Creatinine Ratio (10-20) Glucose (70-99) mg/dl POC Glucose (70-99) mg/dl Estimat Average Glucose mg/dl Hemoglobin A1c (4.5-5.6) % Calcium (8.5-10.1) mg/dl Albumin (3.4-5.0) gm/dl Urine Color Urine Appearance (Clear) Urine pH (4.5-7.5) Ur Specific [place] (1.000-1.030) Urine Protein (Negative) Urine Glucose (UA) (Negative) Urine Ketones (Negative) Urine Blood (Negative) Urine Nitrite (Negative) Urine Bilirubin (Negative) Urine Urobilinogen (Negative) Ur Leukocyte Esterase (Negative) Blood Type B Positive Antibody Screen NEGATIVE 02/07/20 02/07/20 02/07/20 Range/Units 12:02 12:02 Unknown WBC (4.8-10.8) K/uL RBC (4.7-6.1) M/uL Hgb (14.0-18.0) g/dL Hct (42-52) % MCV (80-100) fL MCH (25-34) pg MCHC (32-36) g/dL RDW Std Deviation (36.4-46.3) fL RDW Coeff of Andrea (11.5-14.5) % Plt Count (130-400) K/uL MPV (7.4-10.4) fL Immature Gran % (Auto) % Neut % (Auto) % Lymph % (Auto) % [place] % (Auto) % Eos % (Auto) % Baso % (Auto) % Immature Gran # (Auto) (0.00-0.02) K/uL Neut # (Auto) (1.4-6.5) K/uL Lymph # (Auto) (1.2-3.4) K/uL [place] # (Auto) (0.11-0.59) K/uL Eos # (Auto) (0-0.5) K/uL Baso # (Auto) (0-0.2) K/uL PT (9.0-12.0) Seconds INR (0.9-1.1) APTT (21.0-31.0) Seconds PTT Ratio Sodium 139 (136-145) mmol/L Potassium 4.4 (3.5-5.1) mmol/L Chloride 106 (98-107) mmol/L Carbon Dioxide 28 (21-32) mmol/L Anion Gap 4.0 (3-11) BUN 20 H (7-18) mg/dl Creatinine 1.08 (0.6-1.4) mg/dl Est Cr Clr Drug Dosing 82.1 ml/min Est GFR ( Amer) 85.4 Est GFR (Non-Af Amer) 73.7 BUN/Creatinine Ratio 18.6 (10-20) Glucose 106 H (70-99) mg/dl POC Glucose (70-99) mg/dl Estimat Average Glucose 143 mg/dl Hemoglobin A1c 6.6 H (4.5-5.6) % Calcium 9.4 (8.5-10.1) mg/dl Albumin 3.8 (3.4-5.0) gm/dl Urine Color Yellow Urine Appearance Clear (Clear) Urine pH 5.0 (4.5-7.5) Ur Specific [place] 1.023 (1.000-1.030) Urine Protein Negative (Negative) Urine Glucose (UA) Negative (Negative) Urine Ketones Negative (Negative) Urine Blood Negative (Negative) Urine Nitrite Negative (Negative) Urine Bilirubin Negative (Negative) Urine Urobilinogen Negative (Negative) Ur Leukocyte Esterase Negative (Negative) Blood Type Antibody Screen 02/27/20 02/27/20 02/27/20 Range/Units 10:01 13:06 17:15 WBC (4.8-10.8) K/uL RBC (4.7-6.1) M/uL Hgb (14.0-18.0) g/dL Hct (42-52) % MCV (80-100) fL MCH (25-34) pg MCHC (32-36) g/dL RDW Std Deviation (36.4-46.3) fL RDW Coeff of Andrea (11.5-14.5) % Plt Count (130-400) K/uL MPV (7.4-10.4) fL Immature Gran % (Auto) % Neut % (Auto) % Lymph % (Auto) % [place] % (Auto) % Eos % (Auto) % Baso % (Auto) % Immature Gran # (Auto) (0.00-0.02) K/uL Neut # (Auto) (1.4-6.5) K/uL Lymph # (Auto) (1.2-3.4) K/uL [place] # (Auto) (0.11-0.59) K/uL Eos # (Auto) (0-0.5) K/uL Baso # (Auto) (0-0.2) K/uL PT (9.0-12.0) Seconds INR (0.9-1.1) APTT (21.0-31.0) Seconds PTT Ratio Sodium (136-145) mmol/L Potassium (3.5-5.1) mmol/L Chloride (98-107) mmol/L Carbon Dioxide (21-32) mmol/L Anion Gap (3-11) BUN (7-18) mg/dl Creatinine (0.6-1.4) mg/dl Est Cr Clr Drug Dosing ml/min Est GFR ( Amer) Est GFR (Non-Af Amer) BUN/Creatinine Ratio (10-20) Glucose (70-99) mg/dl POC Glucose 116 H 111 H 173 H (70-99) mg/dl Estimat Average Glucose mg/dl Hemoglobin A1c (4.5-5.6) % Calcium (8.5-10.1) mg/dl Albumin (3.4-5.0) gm/dl Urine Color Urine Appearance (Clear) Urine pH (4.5-7.5) Ur Specific [place] (1.000-1.030) Urine Protein (Negative) Urine Glucose (UA) (Negative) Urine Ketones (Negative) Urine Blood (Negative) Urine Nitrite (Negative) Urine Bilirubin (Negative) Urine Urobilinogen (Negative) Ur Leukocyte Esterase (Negative) Blood Type Antibody Screen 02/27/20 02/28/20 02/28/20 Range/Units 20:57 04:59 04:59 WBC 12.61 H (4.8-10.8) K/uL RBC 4.79 (4.7-6.1) M/uL Hgb 13.6 L (14.0-18.0) g/dL Hct 40.5 L (42-52) % MCV 84.6 (80-100) fL MCH 28.4 (25-34) pg MCHC 33.6 (32-36) g/dL RDW Std Deviation 40.4 (36.4-46.3) fL RDW Coeff of Andrea 13.3 (11.5-14.5) % Plt Count 169 (130-400) K/uL MPV 9.7 (7.4-10.4) fL Immature Gran % (Auto) % Neut % (Auto) % Lymph % (Auto) % [place] % (Auto) % Eos % (Auto) % Baso % (Auto) % Immature Gran # (Auto) (0.00-0.02) K/uL Neut # (Auto) (1.4-6.5) K/uL Lymph # (Auto) (1.2-3.4) K/uL [place] # (Auto) (0.11-0.59) K/uL Eos # (Auto) (0-0.5) K/uL Baso # (Auto) (0-0.2) K/uL PT (9.0-12.0) Seconds INR (0.9-1.1) APTT (21.0-31.0) Seconds PTT Ratio Sodium 137 (136-145) mmol/L Potassium 4.3 (3.5-5.1) mmol/L Chloride 105 (98-107) mmol/L Carbon Dioxide 25 (21-32) mmol/L Anion Gap 7.0 (3-11) BUN 20 H (7-18) mg/dl Creatinine 1.12 (0.6-1.4) mg/dl Est Cr Clr Drug Dosing 78.1 ml/min Est GFR ( Amer) 81.2 Est GFR (Non-Af Amer) 70.0 BUN/Creatinine Ratio 17.7 (10-20) Glucose 139 H (70-99) mg/dl POC Glucose 175 H (70-99) mg/dl Estimat Average Glucose mg/dl Hemoglobin A1c (4.5-5.6) % Calcium 8.3 L (8.5-10.1) mg/dl Albumin (3.4-5.0) gm/dl Urine Color Urine Appearance (Clear) Urine pH (4.5-7.5) Ur Specific [place] (1.000-1.030) Urine Protein (Negative) Urine Glucose (UA) (Negative) Urine Ketones (Negative) Urine Blood (Negative) Urine Nitrite (Negative) Urine Bilirubin (Negative) Urine Urobilinogen (Negative) Ur Leukocyte Esterase (Negative) Blood Type Antibody Screen 02/28/20 02/28/20 Range/Units 08:07 12:04 WBC (4.8-10.8) K/uL RBC (4.7-6.1) M/uL Hgb (14.0-18.0) g/dL Hct (42-52) % MCV (80-100) fL MCH (25-34) pg MCHC (32-36) g/dL RDW Std Deviation (36.4-46.3) fL RDW Coeff of Andrea (11.5-14.5) % Plt Count (130-400) K/uL MPV (7.4-10.4) fL Immature Gran % (Auto) % Neut % (Auto) % Lymph % (Auto) % [place] % (Auto) % Eos % (Auto) % Baso % (Auto) % Immature Gran # (Auto) (0.00-0.02) K/uL Neut # (Auto) (1.4-6.5) K/uL Lymph # (Auto) (1.2-3.4) K/uL [place] # (Auto) (0.11-0.59) K/uL Eos # (Auto) (0-0.5) K/uL Baso # (Auto) (0-0.2) K/uL PT (9.0-12.0) Seconds INR (0.9-1.1) APTT (21.0-31.0) Seconds PTT Ratio Sodium (136-145) mmol/L Potassium (3.5-5.1) mmol/L Chloride (98-107) mmol/L Carbon Dioxide (21-32) mmol/L Anion Gap (3-11) BUN (7-18) mg/dl Creatinine (0.6-1.4) mg/dl Est Cr Clr Drug Dosing ml/min Est GFR ( Amer) Est GFR (Non-Af Amer) BUN/Creatinine Ratio (10-20) Glucose (70-99) mg/dl POC Glucose 127 H 162 H (70-99) mg/dl Estimat Average Glucose mg/dl Hemoglobin A1c (4.5-5.6) % Calcium (8.5-10.1) mg/dl Albumin (3.4-5.0) gm/dl Urine Color Urine Appearance (Clear) Urine pH (4.5-7.5) Ur Specific [place] (1.000-1.030) Urine Protein (Negative) Urine Glucose (UA) (Negative) Urine Ketones (Negative) Urine Blood (Negative) Urine Nitrite (Negative) Urine Bilirubin (Negative) Urine Urobilinogen (Negative) Ur Leukocyte Esterase (Negative) Blood Type Antibody Screen Total Time Total Time Spent Total Time Spent (In Minutes): 20 Discharge Plan Discharge Items Patient Disposition: Home - Home Health Services Reason For Visit: RIGHT KNEE OSTEOARTHRITIS Discharge Diagnosis: Right knee osteoarthritis Activity: Per Instructions section Non-emergency contact: Surgeon Call non-emergency contact if: you have any medication questions, your pain is not controlled, your pain is unusual for you, your pain is concerning for you, you have a fever, your temperature is above 101, your wound has increased redness and your wound has increased drainage Follow-up/Referrals: Tam Elkins MD [Primary Care Provider] - Diet: Regular Addtl Attending Provider Instructions: ACTIVITY RECOMMENDATIONS: SELF CARE INSTRUCTIONS AFTER TOTAL KNEE REPLACEMENT A. You may need to continue a physical therapy program after discharge from the hospital. There are several options available to you. Your doctor will assist you in selecting the best one for you. 1. An out-patient facility 2 to 3 times a week for therapy or home therapy. 2. Continue working on all exercises taught to you in the hospital. Your goals should be to increase bending of your knee to 90 degrees and beyond and to fully straighten your knee. B. You may progress at your own pace from walking with a walker or crutches to a cane; then to no assistive devices. C. Make walking a part of your daily routine. Be up as much as comfortable with rest periods throughout the day. Rest with leg elevation is very important. Use the ice wrap frequently for the first 3-4 weeks. D. There are no restrictions on activities. You may ride in a car, shop, participate in tavern keeper and all social activities. E. Wear the long elastic stockings (ADITYA hose) 20 hours a day for 2 weeks after surgery. They can be removed several times a day for laundering and for a bath. F. You may shower, no tub baths until cleared by your doctor. SPECIAL CARE INSTRUCTIONS: VERY IMPORTANT TO READ AND REVIEW A. There are a few signs you need to watch for after you are home. Call [facility] if you notice any of the followin. Increased severe knee pain. Some pain is expected especially when you exercise. 2. Increased swelling in your leg or knee; pain or swelling of the calf musc le in either lower leg. 3. Any fluid drainage from the incision. 4. Shortness of breath or chest pain. B. Please call [facility] at if you have any concerns or questions about your operation or recovery. The doctor or his nurse will return your call promptly. C. You must take antibiotics before dental work, bladder, bowel or other surgery. Your doctor will provide you with a permanent care to carry describing this precaution. IMPORTANT: * REMEMBER TO TAKE ASPIRIN, 81 MG, TWICE DAILY FOR 4 WEEKS UNLESS OTHERWISE DIRECTED. THIS IS YOUR BLOOD THINNER. * HIGH RISK PATIENTS MAY BE PRESCRIBED A STRONGER BLOOD THINNER. THIS WILL BE PROVIDED AT DISCHARGE. * CALL IF INCREASED PAIN, REDNESS, DRAINAGE OR FEVER GREATER THAT 101. * WEAR ADITYA HOSE 20 HOURS PER DAY FOR 2 WEEKS. This is a large suction dressing covering your incision. This will help pull any excess drainage from the wound and allow your incision to heal properly. You may shower with this if you can keep the unit outside of the shower. If any bleeding or leakage is noted please call your doctor's office. This will remain on your incision for 7 days and then should be removed. This can be done yourself or by the home nursing staff if applicable. The entire unit is disposable once removed. Once removed, keep incision clean and dry. If redness or drainage is noted, please call your surgeon. FOLLOW UP VISIT: If appointment is not already scheduled: Please call [facility] to make a follow-up appointment for 2 weeks after your surgery at . Pending Studies at Discharge: No Stand-Alone Forms: My [facility] Mouth Foods, Opioid Pain Management, Smoking Cessation Medications and DC Order Prescriptions: New celecoxib [Celebrex] 200 mg Capsule 200 mg PO BID Qty: 60 RF: 0 aspirin 81 mg Tablet,Delayed Release (Dr/Ec) 81 mg PO BID Qty: 60 RF: 0 acetaminophen 500 mg Tablet 1,000 mg PO Q8 Qty: 60 RF: 0 oxycodone 5 mg Tablet 5 - 10 mg PO .Q4H-6H MDD 6 PRN (Reason: pain) Qty: 30 RF: 0 Continued multivitamin Tablet 1 tab PO QAM RF: 0 losartan 50 mg Tablet 50 mg PO QAM RF: 0 atorvastatin 20 mg Tablet 20 mg PO QAM RF: 0 metformin 1,000 mg Tablet 1,000 mg PO BID RF: 0 cholecalciferol (vitamin D3) [Vitamin D3] 25 mcg (1,000 unit) Capsule 25 mcg PO QAM RF: 0 omega 5-lum-asq-fish oil [Fish Oil] 1,000 mg (120 mg-180 mg) Capsule 1 cap PO QAM RF: 0 Ocuvite Adult 50 Plus 250-5-1 mg Capsule 1 cap PO QAM RF: 0 sildenafil [Viagra] 50 mg Tablet 50 mg PO DAILY PRN (Reason: Erectile Dysfunction) RF: 0 omeprazole 20 mg Capsule,Delayed Release(Dr/Ec) 20 mg PO QAM RF: 0 Ozempic 0.25 mg or 0.5 mg(2 mg/1.5 mL) Pen Injector 0.5 mg SUBCUT WK RF: 0 Discontinued aspirin [Aspir-81] 81 mg Tablet,Delayed Release (Dr/Ec) 81 mg PO QAM RF: 0 acetaminophen [Tylenol Extra Strength] 500 mg Tablet 1,000 mg PO Q6H PRN (Reason: Pain) RF: 0 sulindac 150 mg Tablet 150 mg PO BID RF: 0 Discharge Orders: Discharge Order (Routine); Ordered 02/28/20 Ordered By: Ruddy Menendez/Other Patient Handouts: Preventing Deep Vein Thrombosis Admission Data Admit Date/Time: 02/27/20 13:22 Attending Provider: Marc Barton Admit Provider: Marc Barotn Primary Care Provider: Tam Elkins Other Interventions: Discharge Summary Assessment (RN) Last Done: 02/28/20 07:43 DC Date/Time DO NOT enter until pt leaves facility: 02/28/20 14:51
== END 2020-02-28 14:51 | disposition home health service (06) ==
LOC: ASU 08:49 → INTOOBSV 13:22 → 3E 13:22